=== PATIENT | female | born 1980 | race African-American/Black ===

== ENCOUNTER 2016-08-31 18:28 | Emergency (ER) | payer OTHER ==
--- NOTE | ~2016-08-31 | US85 ---
[facility]. [place] A Service [facility] RADIOLOGY TEXT RESULTS PATIENT: ABBY CHEN LOCATION: SED : 80 UNIT #: [id number] AGE: [address]: JUDITH MADERA SEX: F ORDER DR: [id number] [place] [id number] E MR#: [id number] Acc #: [id number] NAME: ABBY CHEN : 1980 SEX: F STUDY DATE/TIME: 08/31/2016 19:43 UNIT: SED ROOM: STUDY DESCRIPTION: [facility] Attending Physician: Judith Madera Ordering Physician: Physician Non-Staff Primary Care Physician: Nicole Dimas M.D. MEDICAL IMAGING REPORT This report is preliminary unless electronic signature is present. EXAM Left lower extremity venous duplex 08/31/2016 HISTORY Left lower extremity pain and swelling for 3 days. Evaluate for deep vein thrombosis. History of prior pulmonary embolus in 1996. TECHNIQUE Venous ultrasound examination of the left lower extremity was performed using grayscale, spectral Doppler and color flow Doppler imaging. FINDINGS The examination is negative. There is no evidence of left lower extremity deep venous thrombus from the groin to the lower calf. Visualized greater saphenous vein is also patent. IMPRESSION Negative examination. No evidence of left lower extremity deep venous thrombosis. Dictated by... Ronaldo Warner M.D. THIS IS AN ELECTRONICALLY VERIFIED REPORT Ronaldo Warner M.D. at 09/04/2016 8:22 AM KRT/joycelyn TD: 09/01/2016 07:24 JOB #: [id number] [facility] A Service [facility] RADIOLOGY TEXT RESULTS PATIENT: ABBY CHEN LOCATION: SED : [birth year] UNIT #: [id number] AGE: [address]: JUDITH MADERA SEX: F ORDER DR: MEDICAL IMAGING REPORT Page 1 of 1
[~2016-08-31 18:28] MED LIST: AMOXICILLIN500 M1; AMOXICILLIN500 M1 PO; CLEOCIN HCL300 M1 PO; CLINDAMYCIN HC300 MG PO; FLEXERIL; FLEXERIL10 M1 PO; FLEXERIL10 MG; HYDROCODON-ACE1 EAC7 PO; IBUPROFEN; IBUPROFEN800 MG PO; MEDROL DOSEPAK4 MG; MOTRIN600 M1 PO; NO MEDICATIONS; NORCO1 TAB 10/3 DOB; PERIDEX480 ML PO; PROMETHAZINE D118 ML PO; VOLTAREN50 MG PO; VOLTAREN75 MG PO; ZANTAC150 M1 PO; ZITHROMAX PO; ZOFRANODT PO
== END 2016-08-31 21:04 | disposition home or self-care (01) ==
LOC: SED 18:28
DX: M25.462 Effusion, left knee (principal); R03.0 Elevated blood-pressure reading, without diagnosis of hypertension; Z86.711 Personal history of pulmonary embolism; M19.90 Unspecified osteoarthritis, unspecified site; Z88.1 Allergy status to other antibiotic agents; Z88.2 Allergy status to sulfonamides
CPT/HCPCS: 93971; 99284

== ENCOUNTER 2016-12-01 19:53 | Emergency (ER) | payer OTHER ==
[~2016-12-01] VITALS: Ht 170.2 cm; Wt 124.3 kg
[2016-12-01] MEDS ORDERED: NO MEDICATIONS (20:04)
[2016-12-01 20:45] LABS: BASOPHIL% 0.6 % (0-2.5); EOSINOPHIL# 0.1 X10e3 (0-0.7); EOSINOPHIL% 1.3 % (0.0-7.0); HEMOGLOBIN 12.4 gm/dL (12.0-16.0); LYMPHOCYTE# 2.1 X10e3 (1.0-3.5); LYMPHOCYTE% 28.8 % (17.0-45.0); MEAN CELL VOLUME 77.6 FL (83-96); MEAN CORPUSCULAR HEMOGLOBIN 25.4 PG (28-34); MEAN CORPUSCULAR HGB CONC 32.7 g/dL (30-36); MEAN PLATELET VOLUME 7.5 FL (6.5-11.5); MONOCYTE# 0.5 X10e3 (0-1.0); MONOCYTE% 7.2 % (3.0-12.0); NEUTROPHIL# 4.4 X10e3 (1.5-7.1); NEUTROPHIL% 62.1 % (40-75); PLATELET COUNT 293 X10e3 (140-420); RED CELL DISTRIBUTION WIDTH 16.1 % (11.0-15.5); WHITE BLOOD COUNT 7.2 X10e3 (4.0-10.5)
[2016-12-01 20:49] LABS: DIFF IND NO
[2016-12-01 21:02] LABS: CALCIUM SERUM 8.7 mg/dL (8.4-10.2); CREATININE SERUM 1.1 mg/dL (0.6-1.4); GLOM FILT RATE Estimated 74.8 mL/min (>60); POTASSIUM 3.6 mmol/L (3.5-5.1)
== END 2016-12-01 22:08 | disposition home or self-care (01) ==
LOC: SED 19:53
PROVIDERS: Emergency Medicine
DX: N93.9 Abnormal uterine and vaginal bleeding, unspecified (principal); N83.299 Other ovarian cyst, unspecified side
CPT/HCPCS: 36415; 80048; 84703; 85025; 87491; 87591; 87808; 87905; 96361; 96374; 99284; J1885